=== PATIENT | female | born 1940 | race African-American/Black ===

== ENCOUNTER 2016-06-20 10:39 | Outpatient (CLI) | payer MEDICARE ==
--- NOTE | 2016-06-20 14:11 | Mammography Report ---
BILATERAL DIGITAL SCREENING MAMMOGRAM with CAD: 06/20/16 10:39:00 CLINICAL: Baseline screening. FINDINGS: There are bilateral scattered areas of fibroglandular density.Bilateral benign vascular calcifications.No mass, architectural distortion or suspicious calcifications. IMPRESSION: No mammographic evidence of malignancy. BI-RADS CATEGORY: 2 - - Benign RECOMMENDATION: Routine mammographic screening in one year. COMMENT: Patient follow-up letters are generated by our [employer] application.
== END 2016-06-20 10:40 | disposition home or self-care (01) ==
LOC: MAMMO 10:39
DX: Z12.31 Encounter for screening mammogram for malignant neoplasm of breast (principal)
CPT/HCPCS: 77067; G0202

== ENCOUNTER 2017-05-30 18:08 | Emergency (ER) | payer MEDICARE ==
[2017-05-30 18:16] VITALS: BP 129/61
[2017-05-30 18:35] LABS: Hematocrit 33.7 % (30.3-42.9); Hemoglobin 11.3 gm/dl (10.1-14.3); Mean Corpuscular HGB Conc 33 % (30-34); Mean Corpuscular Hemoglobin 28 pg (28-32); Mean Corpuscular Volume 84 fl (79-97); Platelet Count 248 K/mm3 (140-440); Red Cell Distribution Width 13.5 % (13.2-15.2)
[2017-05-30 18:56] LABS: Albumin 3.9 g/dL (3.9-5); Calcium 9.3 mg/dL (8.4-10.2)
== END 2017-05-30 18:15 | disposition left against medical advice (07) ==
LOC: ED 18:08
DX: R79.89 Other specified abnormal findings of blood chemistry (principal); Z53.21 Procedure and treatment not carried out due to patient leaving prior to being seen by health care provider
CPT/HCPCS: 36415; 80053; 85027